=== PATIENT | male | born 1990 | race Two or more races ===

== ENCOUNTER 2019-06-25 18:51 | Emergency (ER) | payer SELFPAY ==
[~2019-06-25] VITALS: Ht 180.3 cm; Wt 74.8 kg
[2019-06-25 19:20] VITALS: BP 132/85
--- NOTE | 2019-06-25 19:47 | Emergency Room Report ---
History of Present Illness General Chief Complaint: Upper Respiratory Illness Source: Patient Present Illness HPI 29 YO male presents to the ED C/O 5/10 in severity generalized body aches,cough , nose bleeds,nasal congestion, sinus pressure, pressure behind the eyes and headaches x 4 days. Pt. reports subjective fevers on . no flu vaccination. He took Motrin on Tuesday with relief of his COSTELLO. Pt. reports he has had a nose bleed on at least 6 different occasions since onset of his symptoms. He denies hx of nosebleeds in the past. He denies ear pain, facial pain, dizziness, lethargy, sudden onset of COSTELLO or cp/ palpitations. He reports occasionally sneezing. He took DayQuil one time. Denies hx of HTN or bleeding disorders. No other aggravating or relieving factors at this time. Pt. currently denies pain. Allergies: Coded Allergies: No Known Allergies (Unverified , 06/25/19) Patient History Past Medical History: see triage record Past Surgical History: none Pertinent Family History: none Reviewed Nursing Documentation: PMH: Agreed; PSxH: Agreed Nursing Documentation-PMH Past Medical History: No Stated History Review of Systems All Other Systems: negative except mentioned in HPI Physical Exam Vital Signs Date Time Temp Pulse Resp B/P (MAP) Pulse Ox O2 Delivery O2 Flow Rate FiO2 06/25/19 19:07 99.3 100 17 132/85 (101) 98 Room Air Sp02 EP Interpretation: reviewed, normal General Appearance: no apparent distress, alert, GCS 15, non-toxic Head: normocephalic, atraumatic Eyes: bilateral eye normal inspection, bilateral eye PERRL, bilateral eye EOMI ENT: hearing grossly normal, normal voice, TMs + canals normal, uvula midline, nasal congestion, other Neck: full range of motion, no meningismus, no bony tend Respiratory: chest non-tender, lungs clear, normal breath sounds, no respiratory distress, no wheezing, speaking full sentences Musculoskeletal: normal range of motion, gait/station normal, non-tender Neurologic: alert, motor strength/tone normal, oriented x3, sensory intact, responsive, speech normal, grossly normal, no focal defects Psychiatric: judgement/insight normal Skin: normal color, normal inspection Lymphatic: no adenopathy Medical Decision Making PA Attestation Dr. Sanders is my supervising Physician whom patient management has been discussed with. Diagnostic Impression: Primary Impression: Upper respiratory infection Qualified Codes: J06.9 - Acute upper respiratory infection, unspecified Additional Impressions: Nasal congestion Recurrent epistaxis ER Course 29 YO male presents to the ED C/O 5/10 in severity generalized body aches,cough , nose bleeds,nasal congestion, sinus pressure, pressure behind the eyes and headaches x 4 days. Pt. reports subjective fevers on . no flu vaccination. He took Motrin on Tuesday with relief of his COSTELLO. Pt. reports he has had a nose bleed on at least 6 different occasions since onset of his symptoms. He denies hx of nosebleeds in the past. He denies ear pain, facial pain, dizziness, lethargy, sudden onset of COSTELLO or cp/ palpitations. He reports occasionally sneezing. He took DayQuil one time. Denies hx of HTN or bleeding disorders. No other aggravating or relieving factors at this time. Pt. currently denies pain. Ddx considered but are not limited to epistaxis , clotting disorder, above therapeutic levels on blood thinner, nasal trauma, meningitis, sinusitis, URI, Rhinitis, secondary to digital manipulation just to name a few. . Vital signs: are WNL, pt. is afebrile H&PE are most consistent with: URI presumably viral in etiology. No evidence of epistaxis at this time. Hesselbach's plexus in the left nare is erythematous but not bleeding. The patient does not demonstrate any focal neurological deficits -No evidence of trauma, pt. not on blood thinning medications no other symptoms indicating clotting abnormality. ORDERS: none required at this time, the diagnosis is clinical ED INTERVENTIONS: -None required at this time. no active bleeding. - Affrin spray--for congestion and for nosebleeds if they reoccur. - DISCHARGE: At this time pt. is stable for d/c to home. Will provide printed patient care instructions, and any necessary prescriptions. Care plan and follow up instructions have been discussed with the patient prior to discharge. Last Vital Signs Date Time Temp Pulse Resp B/P (MAP) Pulse Ox O2 Delivery O2 Flow Rate FiO2 06/25/19 19:07 99.3 100 17 132/85 (101) 98 Room Air Disposition: HOME, SELF-CARE Condition: Stable Patient Instructions: Nosebleed, Sinus Headache, [id number], Upper Respiratory Infection, Adult Additional Instructions: Take medications as directed. Follow up with a Primary Care Provider in 3-5 days, even if your symptoms have resolved. --Please review list of primary care clinics, if you do not already have a primary care provider Return sooner to ED if new symptoms occur, or current symptoms become worse. - Please note that this Emergency Department Report was dictated using [employer] station manager technology software, occasionally this can lead to erroneous entry secondary to interpretation by the dictation equipment. Deyanira Venegas Jun 25, 2019 19:47
[2019-06-25] MEDS ORDERED: Oxymetazoline 0.05% Na Spray 30ml NASAL ONE (20:00)
--- NOTE | 2019-06-25 20:14 | NUR ---
ED Nurse Note: Patient walked into ED c/o epistaxis x 3 days. Patient reports it's been non-stop although he is not currently actively bleeding. Patient AAO x4, VSS at this time.
[2019-06-25 20:16] VITALS: BP 132/85
--- NOTE | 2019-06-25 20:17 | NUR ---
ED Nurse Note: Pt cleared by health care Provider for discharge. DC instructions/prescription was given and explained to pt and verbalized understanding of teachings. All medical deviecs such as ID band removed. Pt is AAO x4, ambulatory and left with all personal belongings.
== END 2019-06-25 20:15 | disposition home or self-care (01) ==
LOC: EMR 19:30
DX: J06.9 Acute upper respiratory infection, unspecified (principal); R04.0 Epistaxis; R09.81 Nasal congestion
CPT/HCPCS: 99282